=== PATIENT | male | born 1990 | race American Indian/Alaskan Native ===

== ENCOUNTER 2017-03-13 08:39 | Emergency (ER) | payer OTHER ==
--- NOTE | 2017-03-13 09:27 | XRay Report ---
XRAY RIGHT INDEX FINGER THREE VIEWS: 03/13/17 08:39:00 CLINICAL: Pain and swelling. FINDINGS: Dislocation at the IP joint of the index finger with volar displacement of the middle phalanx relative to the proximal phalanx. There is cortical offset on the volar aspect of the middle phalanx but this is also reproduced in the soft tissue. I suspect that this is an artifact and not a fracture. Soft tissue swelling of index finger. No foreign body or soft tissue air. IMPRESSION: Dislocation of the index finger at PIP joint. Recommend postreduction radiographs with three views of the index finger.
[2017-03-13 09:28] VITALS: BP 111/73
[2017-03-13] MEDS ORDERED: PERCOCET 5/325 PO ONE (09:35)
[2017-03-13] MEDS ORDERED: XYLOCAINE 1% 20 mL INFILTRATI ONE (09:37)
--- NOTE | 2017-03-13 10:47 | Emergency Department Report ---
<RHEA SKAGGS A - Last Filed: 03/13/17 12:08> ED Upper Extremity Inj HPI - General Chief Complaint: Extremity Injury, Upper Stated Complaint: RIGHT HAND PAIN Time Seen by Provider: 03/13/17 09:00 Source: patient Mode of arrival: Ambulatory Limitations: No Limitations - History of Present Illness Initial Comments: JAMMED R INDEX FINGER WHEN PLAYING W BROTHER Complaint: Injury to:: right -: Sudden Other Extremity Injury: Fingers: Right (INDEX) Other Injuries: none Handedness: right Place: home Improves With: none Worsens With: movement of extremity Associated Symptoms: denies other symptoms Treatments Prior to Arrival: bandage - Related Data Allergies Allergy/AdvReac Type Severity Reaction Status Date / Time No Known Allergies Allergy Verified 03/13/17 20:02 ED Review of Systems ROS: Stated complaint: RIGHT HAND PAIN Other details as noted in HPI Comment: All other systems reviewed and negative Musculoskeletal: other (FINGER PAIN) ED Past Medical Hx - Past Medical History Previous Medical History?: No - Surgical History Past Surgical History?: No - Social History Smoking Status: Current Every Day Smoker Substance Use Type: None ED Physical Exam - General Limitations: No Limitations General appearance: alert - Head Head exam: Present: atraumatic - Eye Eye exam: Present: normal appearance - Cardiovascular Cardiovascular Exam: Present: regular rate - Expanded Upper Extremity Exam Right Hand Wrist exam: Present: other (INDEX FINGER SWOLLEN AND DIFF BENDING. BANDAGE ON. ) - Skin Skin exam: Present: warm, dry, intact ED Course Vital Signs 03/13/17 03/13/17 03/13/17 08:47 09:26 09:48 Temperature 98.4 F 98.5 F Pulse Rate 93 H 73 Respiratory 18 16 16 Rate Blood Pressure 112/50 Blood Pressure 111/73 [Left] O2 Sat by Pulse 99 99 Oximetry - Reevaluation(s) Reevaluation #1: 03/13/17 0915 PT SEEN NAD VSS R FINGER JAMMED GOOD CAP REFILL SENSATION INTACT NO OTHER INJURY NO SNUFF BOX TENDERNESS XRAY P 0930 WILL NEED TO REDUCE. ORDERS PLACED MEDICATED PRE PROCEDURE FOR PAIN Reevaluation #2: 03/13/17 10:47 pt not in room. 03/13/17 12:12 NURSE HAS MADE SEVERAL UNSUCCESSFUL ATTEMPTS TO REACH PT MESSAGE LEFT PER RN NO RETURN CALL WILL MONITOR FOR PT TO RETURN CALL NEEDS FINGER REDUCED. ED Medical Decision Making - Radiology Data Radiology results: report reviewed, image reviewed - Medical Decision Making SEE NOTE - Differential Diagnosis RO FX V DISCLOCATION Critical care attestation.: If time is entered above; I have spent that time in minutes in the direct care of this critically ill patient, excluding procedure time. ED Disposition Clinical Impression: Finger dislocation Qualifiers: Encounter type: sequela Qualified Code(s): S63.259S - Unspecified dislocation of unspecified finger, sequela Disposition: Z-07 ELOPED Is pt being admited?: No Does the pt Need Aspirin: No Condition: Undetermined <PRATIBHA TRAN - Last Filed: 03/14/17 15:04> ED Disposition Is pt being admited?: No Does the pt Need Aspirin: No
== END 2017-03-13 12:10 | disposition left against medical advice (07) ==
LOC: ED 08:39
DX: S63.25 Unspecified dislocation of other finger (principal); W23.0XXS Caught, crushed, jammed, or pinched between moving objects, sequela; F17.200 Nicotine dependence, unspecified, uncomplicated
CPT/HCPCS: 99283

== ENCOUNTER 2017-03-13 19:52 | Emergency (ER) | payer OTHER ==
[2017-03-13 20:05] VITALS: BP 98/61
[2017-03-13] MEDS ORDERED: XYLOCAINE 1% 20 mL INFILTRATI ONE (20:11)
--- NOTE | 2017-03-13 20:16 | Emergency Department Report ---
ED Extremity Problem HPI - General Chief complaint: Extremity Injury, Upper Stated complaint: RIGHT FINGER PAIN Time Seen by Provider: 03/13/17 20:07 Source: patient Mode of arrival: Ambulatory Limitations: No Limitations - History of Present Illness Initial comments: PT states he was seen this am and dx with a dislocated finger. PT states he left before it was reduced. PT states he hopes we put his finger back in place. PT reports pain 11/22. PT states injury occurred last night at home. PT states he was messing with his brother and when he pushed on his brother's shoulder, he accidentally jammed his finger. MD Complaint: extremity pain, extremity swelling, joint paint -: Sudden, Last night Time: 19:30 Location: right, other (index finger ) Severity scale (0 -10): 9 Quality: sharp, constant Consistency: constant Improves with: nothing Worsens with: palpation, other (movement of R arm ) Associated Symptoms: denies other symptoms - Related Data Previous Rx's Medication Instructions Recorded Last Taken Type Ibuprofen [Motrin] 600 mg PO Q8H PRN #15 tablet 03/13/17 Unknown Rx Allergies Allergy/AdvReac Type Severity Reaction Status Date / Time No Known Allergies Allergy Verified 03/13/17 20:02 ED Review of Systems ROS: Stated complaint: RIGHT FINGER PAIN Other details as noted in HPI Comment: All other systems reviewed and negative Constitutional: denies: chills, fever Cardiovascular: denies: chest pain Gastrointestinal: denies: abdominal pain Musculoskeletal: as per HPI, other (PT states the finger pain with shoot up his R arm). denies: back pain ED Past Medical Hx - Past Medical History Previous Medical History?: No - Surgical History Past Surgical History?: No - Social History Smoking Status: Current Some Day Smoker Substance Use Type: None - Medications Home Medications: Home Medications Medication Instructions Recorded Confirmed Last Taken Type Ibuprofen [Motrin] 600 mg PO Q8H PRN #15 tablet 03/13/17 Unknown Rx ED Physical Exam - General Limitations: No Limitations General appearance: alert, in no apparent distress - Head Head exam: Present: atraumatic, normocephalic, normal inspection - Eye Eye exam: Present: normal appearance. Absent: conjunctival injection - ENT ENT exam: Present: normal exam, normal external ear exam - Neck Neck exam: Present: normal inspection, full ROM - Respiratory Respiratory exam: Present: normal lung sounds bilaterally. Absent: respiratory distress - Cardiovascular Cardiovascular Exam: Present: regular rate, normal rhythm - Extremities Exam Extremities exam: Present: tenderness, normal capillary refill. Absent: normal inspection, full ROM - Expanded Upper Extremity Exam Left General: Present: normal inspection Right Shoulder Exam: Present: normal inspection. Absent: tenderness Upper Arm exam: Absent: tenderness Elbow exam: Present: normal inspection, full ROM Hand Wrist exam: Present: tenderness, swelling (R index finger at the PIP joint ), deformity (mild finger deformity noted ). Absent: full ROM, amputation, nail avulsion, subungual hematoma Vascular: Present: normal capillary refill, radial pulse. Absent: vascular compromise - Back Exam Back exam: Present: normal inspection, full ROM - Neurological Exam Neurological exam: Present: alert, oriented X3, normal gait - Psychiatric Psychiatric exam: Present: normal affect, normal mood - Skin Skin exam: Present: warm, dry, intact, normal color ED Course Vital Signs 03/13/17 20:03 Temperature 97.5 F L Pulse Rate 73 Respiratory 16 Rate Blood Pressure 98/61 O2 Sat by Pulse 98 Oximetry - Reevaluation(s) Reevaluation #1: 03/13/17 20:17 PT aware of plan of care. Reevaluation #2: 03/13/17 20:59 I placed pt in metal finger splint after I reviewed XRs. PT aware he will need to follow up with ORTHO. PT has no questions at this time. - Orthopedic Joint Reduction Joint #1 Consent Obtained: verbal consent, emergent situation Side: right Joint Reduction Location: finger (index) Analgesia: digital block Local Anesthetic Used: Bupivicaine 0.5% Amount of Anesthetic Used (mls): 4 Technique Used: direct manipulation Post-Reduction Neuro Exam: intact Post-Reduction Vascular Exam: intact Post Reduction X-Ray Obtained: Yes Splint Applied: Yes Patient Tolerated Procedure: well, no complications - Pulse Oximetry Interpretation Digit-Finger Initial Pulse Oximetry Readin Actions Taken: none ED Medical Decision Making - Radiology Data Radiology results: image reviewed interpreted by me: XR finger - reduction successful - Differential Diagnosis fx, dislocation Critical Care Time: No Critical care attestation.: If time is entered above; I have spent that time in minutes in the direct care of this critically ill patient, excluding procedure time. ED Disposition Clinical Impression: Finger dislocation Qualifiers: Encounter type: sequela Qualified Code(s): S63.259S - Unspecified dislocation of unspecified finger, sequela Disposition: TO HOME OR SELFCARE Is pt being admited?: No Does the pt Need Aspirin: No Condition: Stable Instructions: Finger Dislocation (ED) Additional Instructions: Wear your splint when up and active Follow up with ORtho in the next 3-5 days Prescriptions: Ibuprofen [Motrin] 600 mg PO Q8H PRN #15 tablet PRN Reason: Pain Referrals: PRIMARY CARE, [Primary Care Provider] - 3-5 Days PRETTY MULLEN MD [Staff Physician] - 3-5 Days ADRIANA EMERSON MD [Staff Physician] - 3-5 Days [facility] [Outside] - 3-5 Days Forms: Work/School Release Form(ED) Time of Disposition: 21:01
[2017-03-13] MEDS ORDERED: MARCAINE 0.5% INFILTRATI ONE ×2 (20:19→20:24)
--- NOTE | 2017-03-13 21:33 | XRay Report ---
FINAL REPORT PROCEDURE: XR FINGER(S) 2+V RT TECHNIQUE: Right 2nd finger, three views HISTORY: post reduction COMPARISON: No prior studies are available for comparison. FINDINGS: No prior study is available for comparison. There is mild patient motion artifact, however no joint dislocation is seen on the current exam. On the lateral view at the volar aspect of the proximal interphalangeal joint, there is punctate osseous density. Cannot exclude a small avulsion injury, however no donor site is identified. There is soft tissue swelling. IMPRESSION: No joint dislocation is seen on the current exam. Punctate osseous density at the volar aspect of the proximal interphalangeal joint may be a small avulsion injury. Donor site is not identified.
== END 2017-03-13 21:07 | disposition home or self-care (01) ==
LOC: ED 19:52
DX: S63.280A Dislocation of proximal interphalangeal joint of right index finger, initial encounter (principal); F17.200 Nicotine dependence, unspecified, uncomplicated; W23.0XXA Caught, crushed, jammed, or pinched between moving objects, initial encounter; Y93.89 Activity, other specified; Y99.8 Other external cause status; Y92.009 Unspecified place in unspecified non-institutional (private) residence as the place of occurrence of the external cause